=== PATIENT | female | born 1985 | race Caucasian/White ===

== ENCOUNTER 2017-02-04 11:23 | Emergency (ER) | payer OTHER | END 2017-02-04 13:30 | disposition home or self-care (01) | LOC: ER1 11:23 | DX: Z04.1 Encounter for examination and observation following transport accident (principal); F17.210 Nicotine dependence, cigarettes, uncomplicated; Z88.8 Allergy status to other drugs, medicaments and biological substances | CPT/HCPCS: 70450; 71010; 72125; 96374; 99284; J1885 ==

== ENCOUNTER → 2017-04-09 | Outpatient (CLI) | payer MEDICARE | LOC: KOH-I 04-06 14:00 | DX: M54.2 Cervicalgia (principal); M25.511 Pain in right shoulder; M25.78 Osteophyte, vertebrae; M47.892 Other spondylosis, cervical region; M99.71 Connective tissue and disc stenosis of intervertebral foramina of cervical region; M19.011 Primary osteoarthritis, right shoulder | CPT/HCPCS: 72141; 73221 ==

== ENCOUNTER 2020-12-31 22:50 | Emergency (ER) | payer MEDICARE, OTHER ==
[~2020-12-31 22:50] MED LIST: CEFUROXIME500 MG PO; COLACE 100MG C100 MG PO; HYDROCODON-ACE1 EAC4 PO; IBUPROFEN600 MG PO; IBUPROFEN800 MG PO; MACROBID 100 M100 MG PO; PYRIDIUM100 MG PO; ZOFRAN4 MG PO
[2021-01-01 01:14] LABS: HEMOGLOBIN 14.6 gm/dl (12.3-15.3); RED BLOOD COUNT 4.83 M/UL (4.00-5.10)
[2021-01-01 01:27] LABS: BUN/CREATININE RATIO 8 (0-10)
== END 2021-01-01 03:57 | disposition home or self-care (01) ==
LOC: ER1 22:50
PROVIDERS: Family Medicine
DX: R10.9 Unspecified abdominal pain (principal); R30.0 Dysuria; F17.210 Nicotine dependence, cigarettes, uncomplicated; Z88.8 Allergy status to other drugs, medicaments and biological substances
CPT/HCPCS: 36415; 80053; 80307; 81001; 83605; 85025; 87086; 96374; 96375; 99284

== ENCOUNTER 2021-02-05 10:00 | Emergency (ER) | payer MEDICARE, OTHER ==
[2021-02-05 12:20] LABS: HEMOGLOBIN 14.6 gm/dl (12.3-15.3); RED BLOOD COUNT 4.93 M/UL (4.00-5.10); WHITE BLOOD COUNT 19.3 K/UL (4.5-11.0)
[2021-02-05 12:47] LABS: BUN/CREATININE RATIO 11 (0-10)
[2021-02-05] MEDS ORDERED: AMOXICILLIN500 M1 PO (14:46)
[2021-02-05] MEDS ORDERED: ZITHROMAX250 MG PO (14:53)
== END 2021-02-05 15:05 | disposition home or self-care (01) ==
LOC: ER1 10:00
PROVIDERS: Emergency Medicine
DX: J18.9 Pneumonia, unspecified organism (principal); Z20.822 Contact with and (suspected) exposure to COVID-19
CPT/HCPCS: 0240U; 80053; 82550; 82553; 83605; 83874; 84484; 85025; 87040; 99285; J0696; Q9967

== ENCOUNTER 2021-02-20 18:35 | Emergency (ER) | payer MEDICARE, OTHER ==
[~2021-02-20 18:35] MED LIST changes: +AMOXICILLIN500 M1 PO; +ZITHROMAX250 MG PO
[2021-02-20] MEDS ORDERED: VIBRAMYCIN100 MG PO (20:27)
== END 2021-02-20 21:00 | disposition home or self-care (01) ==
LOC: ER1 18:35
DX: S30.860A Insect bite (nonvenomous) of lower back and pelvis, initial encounter (principal); W57.XXXA Bitten or stung by nonvenomous insect and other nonvenomous arthropods, initial encounter; F17.210 Nicotine dependence, cigarettes, uncomplicated; Z23 Encounter for immunization; Z88.8 Allergy status to other drugs, medicaments and biological substances
CPT/HCPCS: 90471; 90715; 99281

== ENCOUNTER 2021-10-23 22:06 | Emergency (ER) | payer MEDICARE, OTHER ==
[~2021-10-23 22:06] MED LIST changes: +VIBRAMYCIN100 MG PO
== END 2021-10-24 00:11 | disposition home or self-care (01) ==
LOC: ER1 22:06
DX: J02.9 Acute pharyngitis, unspecified (principal); Z20.822 Contact with and (suspected) exposure to COVID-19; F17.210 Nicotine dependence, cigarettes, uncomplicated; Z88.8 Allergy status to other drugs, medicaments and biological substances
CPT/HCPCS: 87081; 87880; 99283; U0002